=== PATIENT | female | born 1945 | race Caucasian/White ===

== ENCOUNTER → 2016-09-27 | Outpatient (CLI) | payer MEDICARE, OTHER ==
--- NOTE | 2016-09-27 10:11 | PN ---
Date/Time of Note Date/Time of Note DATE: 09/27/16 TIME: 10:08 Assessment/Plan VTE Prophylaxis VTE Prophylaxis Intervention: ambulation Assessment/Plan Assessment/Plan ASSESSMENT: Right knee osteoarthritis PLAN: The patient underwent a repeat Monovisc injection to her right knee today. She tolerated the procedure well. She was advised to take Tylenol or [id number] anti-inflammatories and ice her knee. Additionally she should modify her activity today. We will see her back on an as-needed basis. If she would like to repeat the injection, she will call us prior to 6 months, which when she can repeat the injection. PROCEDURE: The procedure was fully explained to the patient, and informed consent was obtained prior to the start of the procedure. The lateral aspect of the right knee was sterilized with Betadine and ethyl chloride was used to anesthetize the superolateral aspect of the right knee. 4 cc of Magnevist was then injected intra-articularly. The patient tolerated procedure well. Sterile dressing was applied. All questions and concerns were addressed at the time of the procedure. Subjective 24 Hr Interval Summary Free Text/Dictation The patient presents today for a follow-up on her right knee. We saw her last 6 months ago at which point she had a Monovisc injection to her right knee. She has been doing satisfactory overall but has had diminishing return on her injection and increased pain. She denies any fevers, chills, or adverse events from her previous injection. She denies any trauma, fall, or injury. She presents today for a repeat injection to her right knee. Exam/Review of Systems Exam On exam today, she is alert and oriented 4, and in no acute distress. She has a slight valgus deformity to her right knee. Range of motion is 0-130. She has tenderness along the lateral joint line and lateral femoral condyle. There is no medial joint line tenderness. Varus and valgus forces are stable. Homans sign is negative. Compartments are soft. She is neurovascularly intact distally. BRIDGET VAZQUEZ PA-C Sep 27, 2016 10:11
== END | disposition home or self-care (01) ==
LOC: HKI 09:14
PROVIDERS: ATTEND Orthopaedic Surgery
DX: M17.11 Unilateral primary osteoarthritis, right knee (principal)
CPT/HCPCS: 20610; J7327